=== PATIENT | female | born 1980 | race Caucasian/White ===

== ENCOUNTER → 2021-07-25 10:03 | Outpatient (BNVA) | payer MEDICARE, MEDICAID, SELFPAY | PROVIDERS: Visit Provider Orthopaedic Surgery | DX: S43.432A Superior glenoid labrum lesion of left shoulder, initial encounter (principal); M25.512 Pain in left shoulder | CPT/HCPCS: 20610; 99202; J1100 ==

== ENCOUNTER → 2021-08-26 10:33 | Outpatient (BNVA) | payer MEDICARE, MEDICAID, SELFPAY | PROVIDERS: Visit Provider Physician Assistant | DX: S43.432D Superior glenoid labrum lesion of left shoulder, subsequent encounter (principal) | CPT/HCPCS: 99212 ==

== ENCOUNTER 2021-08-31 09:02 | Day surgery (SDC) | payer MEDICARE, MEDICAID, SELFPAY ==
[2021-08-24 18:14] VITALS: BMI 32.5
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
[2021-08-31] VITALS (14 sets, daily range): BP systolic 115–142; BP diastolic 71–89; PULSE 55–78; RESP 14–20; TEMP 36.2–36.4; O2SAT 94–99
[2021-08-31 09:34] LABS: UPreg QC Valid YES; Urine Pregnancy NEGATIVE (NEGATIVE)
[2021-08-31] MEDS: Lactated Ringers 1,000 ML 100 ML IVCONT (09:42)
--- NOTE | 2021-08-31 12:46 | P.BOP_ITS ---
Brief Operative Note Date of Service: 08/31/21 Pre-op diagnosis: left shoulder SLAP tear Post-op diagnosis: other (1) left shoulder anterior labral tear 2) left shoulder bursitis) Procedure: anterior labral repair left shoulder with sub acromial bursectomy Implants: micro-raptor 2.7 mm Surgeon: Jamar Mcneal MD Anesthesia: GETA and regional Was an Processor Grain used for this Procedure?: Yes Processor Grain: Nessa Burrows Estimated blood loss (mL): 10 IV fluids (mL): 1,000 Pathology: none sent Condition: stable Disposition: PACU
[2021-08-31] MEDS: oxyCODONE HCl Immed Release 5 MG TABLET PO (13:11)
[2021-08-31] MEDS: fentaNYL citrate/PF 100 MCG/2 ML VIAL 25 MCG IVPUSH (13:13)
[2021-08-31] MEDS: HYDROmorphone HCl 0.5 MG/0.5 ML SYRINGE 0.25 MG IVPUSH ×2 (13:40→13:45)
--- NOTE | 2021-09-19 17:02 | W.PM.OPN ---
Operative Note Operative Note Date of Service: 08/31/21 Narrative: Date of Service: 08/31/21 Pre-op diagnosis: left shoulder SLAP tear Post-op diagnosis: other (1) left shoulder anterior labral tear 2) left shoulder bursitis) Procedure: anterior labral repair left shoulder with sub acromial bursectomy Implants: micro-raptor 2.7 mm Surgeon: Jamar Mcneal MD Anesthesia: GETA and regional Was an Environmental Health Sanitarian used for this Procedure?: Yes Environmental Health Sanitarian: Nessa Burrows Estimated blood loss (mL): 10 IV fluids (mL): 1,000 Pathology: none sent Condition: stable Disposition: PACU Procedure in detail: Patient was brought to the operating room and placed the the beach chair position. All bony prominences were well padded and the limb was prepped and draped in standard sterile fashion. A time out was called to identify proper site, proper procedure and proper surgeon. IV antibiotics per weight were administered. I began by making a posterolateral stab incision with a 15 blade. A blunt trochar was placed into the glenohumeral joint and I insufflated the joint with saline and a 30 degree arthroscope was placed. I established an outside- in anterior portal just distal to the biceps tendon. I then began my inspection of the glenohumeral joint. There were no cartilage changes. There wass a labral tear of the anterior labrum from 3-6 O;clock position. There was no undersurface RTC tear. The subscapularis and biceps and remainder of the labrum was intact. I began by using a bur to debride the anterior inferior labrum. I then passed loop suture at the 5 o'clock position and then at the 3:30 position and placed 2 [employer] Nephew micro raptor klnotless sutures in these positions reapproximating the anterior labrum and re-establishing the normal anatomy. I then removed the trochar and entered the subacromial space. A direct lateral portal was then established and I performed a bursectomy. The cuff was then examined and was intact. A 5 mm subacromial decompression was performed using standard technique. Once I was satisfied with the extent of decompression final images were captured and I removed all instrumentation. Portals were closed with nylon. Patient was placed in an abduction sling, extubated and brought to the recovery room in stable condition. There were no known complications.
== END 2021-08-31 15:53 | disposition home or self-care (01) ==
PROVIDERS: Nurse Practitioner; Visit Provider Orthopaedic Surgery
PROC: (CPT 29805; principal; 2021-08-31 10:50)
DX: S43.432A Superior glenoid labrum lesion of left shoulder, initial encounter (principal); M75.52 Bursitis of left shoulder; M06.9 Rheumatoid arthritis, unspecified; R20.2 Paresthesia of skin; V89.2XXA Person injured in unspecified motor-vehicle accident, traffic, initial encounter; Y93.9 Activity, unspecified; Y92.9 Unspecified place or not applicable; Y99.8 Other external cause status; F17.210 Nicotine dependence, cigarettes, uncomplicated
CPT/HCPCS: 29807; 29826; 81025; J0171; J0690; J1100; J1170; J2250; J2405; J2550; J2795; J3010

== ENCOUNTER → 2021-11-03 10:14 | Outpatient (BNVA) | payer MEDICARE, MEDICAID, SELFPAY | PROVIDERS: Visit Provider Physician Assistant | DX: S43.432A Superior glenoid labrum lesion of left shoulder, initial encounter (principal); X58.XXXA Exposure to other specified factors, initial encounter; Y93.9 Activity, unspecified; Y92.9 Unspecified place or not applicable; Y99.9 Unspecified external cause status; Z98.890 Other specified postprocedural states | CPT/HCPCS: 99212 ==

== ENCOUNTER 2021-11-30 13:00 | Outpatient (RCR) | payer MEDICARE, MEDICAID, SELFPAY ==
--- NOTE | 2021-09-05 12:27 | MHC.PT.EP ---
[facility] [place] Office [place] Office [place] Office [address] Maryam Hoyt [address] [phone] F: [phone] F: [phone] F: [phone] F: [phone] Physical Therapy Plan of Care Date of Evaluation: Date of Surgery: 08/31/21 Diagnosis: ANTERIOR LABRAL REPAIR LEFT SHOULDER WITH SUBACROMIAL BURSECTOMY Assessment: NICOLE IS A PLEASANT 40 YO FEMALE WHO PRESENTS POD 5 FOR ORTHOPEDIC FOLLOW UP AND PT EVALUATION. UPON EXAM HE DEMONSTRATES THE EXPECTED IMPAIRMENTS OF DECREASED ROM, DECREASED STRENGTH, ALTERED POSTURE AND POSITIONING, INCREASED UPPER TRAP GUARDING, AND INCREASED PAIN AND EDEMA. FUNCTIONAL LIMITATIONS INCLUDE DECREASED ABILITY TO PERFORM HOMEMAKING AND SELF-CARE TASKS, DECREASED ABILITY TO PERFORM PUSHING, PULLING, LIFTING AND REACHING. INABILITY TO DRIVE AND PERFORM WORK TASKS, DECREASED PARTICIPATION IN COMMUNITY AND RECREATIONAL ACTIVITIES AND DISRUPTED SLEEP. THE PT IS A GOOD CANDIDATE FOR SKILLED PT DUE TO AGE, POTENTIAL REMEDIATION OF IMPAIRMENTS, TYPICAL DISEASE/CONDITION PROGRESSION AND PROGNOSIS, COMORBIDITIES, AND MOTIVATION. PT WOULD BENEFIT FROM TAILORED PROGRAM OF THERAPEUTIC ACTIVITIES, FUNCTIONAL TRAINING, GAIT TRAINING, POSTURAL EDUCATION, NEUROMUSCULAR RE-EDUCATION, AND MODALITIES NEEDED. Frequency and Duration: The patient will be seen 2 X WEEK FOR 4 WEEKS Short Term Goals: INITIATE HEP AND PROMOTE SELF MANAGEMENT OF SYMPTOMS Prison Goals: FULL, PAIN FREE ROM FULL UE STRENGTH, PAIN FREE TO PERFORM COMPUTER AND WORK TASKS WITHOUT RESTRICTION AND PAIN NO GREATER THAN 2/[address] OBJECT AT MINIMUM OF 5# INTO CABINET AT SHOULDER HEIGHT Treatment Plan: Modalities to reduce pain, spasms and effusion. Manual therapy to restore motion and function. Therapeutic exercise to improve strength and flexibility. Neuromuscular re-education for posture and balance. Therapeutic activities to return to functional activities of daily living. Electronically signed by: ETTA VARGAS PT, DPT Please sign and return to therapist. Thank you for your referral.
--- NOTE | 2022-01-04 10:01 | MHC.PT.DC ---
[facility] [place] Office [place] Office [place] Office [address] Maryam Hoyt [address] [facility] [phone] F: [phone] F: [phone] F: [phone] F: [phone] Physical Therapy Discharge Report Diagnosis: ANTERIOR LABRAL REPAIR LEFT SHOULDER WITH SUBACROMIAL BURSECTOMY Date of Surgery: 08/31/21 Date of Evaluation: 09/05/21 Date of Discharge: 01/04/22 Treatments to Date: 21 Cancellations to Date: 2 No Shows to Date: 1 Discharge Status: Discharge Summary: Milagro had missed 3 weeks of appointments was offered one additional appointment which she no showed for so we are DCing her for non-compliance at this time. She does have a comprehensive HEP which she can cont with independently Electronically signed by: Ene Butt PT, DPT Please sign and return to therapist. Thank you for your referral.
== END 2022-01-04 10:00 | disposition home or self-care (01) ==
LOC: HO.PT 13:00
PROVIDERS: Visit Provider Physician Assistant
DX: S43.432A Superior glenoid labrum lesion of left shoulder, initial encounter (principal)
CPT/HCPCS: 97110; 97112; 97140; 97161

== ENCOUNTER → 2021-12-09 11:30 | Outpatient (BNVA) | payer MEDICARE, MEDICAID, SELFPAY | PROVIDERS: PCP Nurse Practitioner Family; Visit Provider Physician Assistant | DX: S43.439A Superior glenoid labrum lesion of unspecified shoulder, initial encounter (principal) | CPT/HCPCS: 99212 ==